=== PATIENT | female | born 1990 | race African-American/Black ===

== ENCOUNTER 2020-11-25 15:50 | Emergency (ER) | payer MEDICAID, OTHER ==
[~2020-11-25] VITALS: Ht 170.2 cm; Wt 73.9 kg
[2020-11-25 18:44] VITALS: BP 132/85
[2020-11-25] MEDS ORDERED: KETOROLAC TROMETH 60MG/2ML VIAL IM ONE (19:00)
== END 2020-11-25 19:16 | disposition home or self-care (01) ==
LOC: EDBD 15:50 → ER 15:50
DX: S62.322A Displaced fracture of shaft of third metacarpal bone, right hand, initial encounter for closed fracture (principal); W18.39XA Other fall on same level, initial encounter; Y93.89 Activity, other specified; Y92.89 Other specified places as the place of occurrence of the external cause; Y99.8 Other external cause status
CPT/HCPCS: 29125; 73120; 96372; 99283; J1885